=== PATIENT | male | born 1985 | race African-American/Black ===

== ENCOUNTER 2017-05-17 01:08 | Emergency (ER) | payer MEDICAID ==
[~2017-05-17] VITALS: Ht 177.8 cm; Wt 75.7 kg
[2017-05-17 01:15] VITALS: BP 151/92
[2017-05-17] MEDS ORDERED: CHANTIX PO (01:15)
[2017-05-17] MEDS ORDERED: ADDERAL20 MG ORAL (01:15)
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
[2017-05-17 01:20] VITALS: BP 151/92
== END 2017-05-17 01:20 ==
LOC: EMR 01:20
DX: S01.111A Laceration without foreign body of right eyelid and periocular area, initial encounter (principal); Y04.0XXA Assault by unarmed brawl or fight, initial encounter; Y92.9 Unspecified place or not applicable
CPT/HCPCS: 99283